=== PATIENT | female | born 1955 | race Asian ===

== ENCOUNTER → 2017-09-30 | Outpatient (CLI) | payer OTHER ==
--- NOTE | 2017-10-01 07:55 | MAMMOGRAPHY REPORT ---
BILATERAL DIGITAL SCREENING MAMMOGRAM TOMOSYNTHESIS WITH CAD: 09/30/2017 CLINICAL HISTORY: Routine screening. Patient has no complaints. TECHNIQUE: The study was acquired using full field digital technology and interpreted from soft copy. Breast tomosynthesis in addition to standard 2D mammography was performed. Current study was also ev aluated with a Computer Aided Detection (CAD) system. COMPARISON: Comparison is made to exam dated: 07/28/2006. BREAST COMPOSITION: The tissue of both breasts is heterogeneously dense, which may obscure small mass es. FINDINGS: There have been involutional changes comparing to the 2007 mammograms. There is a possible small area of architectural distortion in the middle one third of the left breast along the posterio r nipple line on the MLO view (MLO tomosynthesis slice 44/83). This is not definitely seen on the CC view but may project near 12:00 based on the tomosynthesis localizer bar. Another possible area of architectural distortion in the anterior right breast along the posterior nipple line on the cc view (right CC tomosynthesis slice 29/75), for which additional spot compression tomosynthesis views and p ossible ultrasound are recommended. No suspicious calcifications, asymmetries or definite masses are seen bilaterally. There are numerou s scattered benign rim calcifications in the breasts. IMPRESSION: ACR BI-RADS CATEGORY 0: INCOMPLETE EVALUATION: NEED ADDITIONAL IMAGING EVALUATION The possible areas of architectural distortion in the middle one third of the left breast along the p osterior nipple line, and in the anterior right breast on the CC view need additional imaging evaluat ion. The patient will be called to schedule an appointment. Some breast cancers are not detected with mammography. A negative mammographic report should not filiberto y biopsy if a clinically suggestive mass is present. Jesenia Ferreira M.D. ay/:09/30/2017 16:04:27 Bale Stacker: RT Travis(Kyree)(Charline)(BD), [facility] letter sent: Addl Imaging 0 BI-RADS Code: ACR BI-RADS Category 0: Incomplete Evaluation: Need Additional Imaging Evaluation
== END | disposition home or self-care (01) ==
LOC: C.MAMM 14:10
PROVIDERS: ATTEND Family Medicine
DX: Z12.31 Encounter for screening mammogram for malignant neoplasm of breast (principal)

== ENCOUNTER → 2017-10-08 | Outpatient (CLI) | payer OTHER ==
--- NOTE | 2017-10-08 14:55 | MAMMOGRAPHY REPORT ---
BILATERAL DIGITAL DIAGNOSTIC MAMMOGRAM TOMOSYNTHESIS WITH CAD AND TARGETED BILATERAL ULTRASOUND: 2017 CLINICAL HISTORY: Callback from screening mammogram for bilateral areas of architectural distortion. TECHNIQUE: The study was acquired using full field digital technology and interpreted from soft copy. Breast tomosynthesis in addition to standard 2D mammography was performed. Current study was also ev aluated with a Computer Aided Detection (CAD) system. Spot compression bilateral CC and MLO 2D and t omosynthesis images were obtained. COMPARISON: Comparison is made to exams dated: 07/28/2006, 07/28/2006, and 09/30/2017 mammogram - [facility]. BREAST COMPOSITION: The tissue of both breasts is heterogeneously dense, which may obscure small mass es. FINDINGS: The previously described small area of possible architectural distortion seen within the le ft superior breast on the MLO view does not clearly persist on the additional spot compression views. The other possible area of architectural distortion seen within the right anterior subareolar breas t also does not clearly persist on the additional spot compression views. Normal fibroglandular tiss ue is seen within these regions, without evidence of a suspicious mass, architectural distortion, or other suspicious findings seen. Targeted ultrasound was performed in the right subareolar breast in the region of the possible right breast architectural distortion. Sonographically normal tissue is seen in this region, without evide nce of a mass or other suspicious sonographic abnormality. Targeted ultrasound was performed in the left superior breast in the region of the questionable architectural distortion. The background pare nchymal echotexture is markedly heterogeneous with multiple areas of shadowing seen which reduces the sensitivity of the ultrasound exam. In the left 12:00 periareolar breast, there is a focal hypoecho ic lesion with posterior acoustic shadowing which measures 4 x 4 x 4 mm, which persists in both the r adial and antiradial planes. While this may represent normal fibroglandular tissue, it is indetermin ate and ultrasound-guided core needle biopsy is recommended for further evaluation. IMPRESSION: ACR BI-RADS CATEGORY 4: SUSPICIOUS, ULTRASOUND ACR BI-RADS CATEGORY 4: SUSPICIOUS 1. Questionable right breast architectural distortion does not persist on the additional views, with out corresponding suspicious sonographic abnormality evident. Findings are benign and compatible wit h normal fibroglandular tissue. 2. Questionable architectural distortion in the left superior breast effaces on additional spot comp ression views. A focal hypoechoic 4 mm region is seen within the left 12:00 periareolar breast on ul trasound, which is likely incidentally noted and is indeterminate and ultrasound-guided core needle b iopsy is recommended for further evaluation. A phone call was made to the physician's office to confirm faxed results were received. The patient has been verbally notified of the results. She tentatively scheduled the biopsy before l eaving the department. Some breast cancers are not detected with mammography. A negative mammographic report should not filiberto y biopsy if a clinically suggestive mass is present. Diana Porter M.D. ah/:10/08/2017 12:39:57 Electrician Supervisor Airplane: RT Carley(R)(M), [facility]; Diana Porter MD, [facility] letter sent: Abnormal 4/5 OVERALL STUDY BIRADS: 4 Suspicious abnormality
== END | disposition home or self-care (01) ==
LOC: C.MAMM 10:27
PROVIDERS: ATTEND Family Medicine
DX: N64.89 Other specified disorders of breast (principal); R92.8 Other abnormal and inconclusive findings on diagnostic imaging of breast

== ENCOUNTER → 2017-10-20 | Outpatient (CLI) | payer OTHER ==
--- NOTE | 2017-10-20 14:16 | Discharge Instructions ---
Discharge Instructions Procedure Procedure Date: Oct 20, 2017. Reason for visit: Left Mass. Discharge Discharge Date: Oct 20, 2017. Discharge Diagnosis: post left 12:00 breast ultrasound guided core biopsy Instructions Activity Recommendations: Additional Limitations (see below) Return to School/Work: no limitations Recommended Home Diet: No Limitations Provider Instructions: ACTIVITY RECOMMENDATIONS: * No lifting, pushing, pulling or exercising the affected side for three days. RETURN TO SCHOOL/WORK: * You may return to work/school after the procedure, but do not perform any strenuous activities for 24 to 48 hours. MEDICATIONS: * Tylenol (two 325 mg) every four to six hours if needed for mild pain (if not allergic to Tylenol). DIET: * Resume previous diet. SPECIAL CARE INSTRUCTIONS: * Keep biopsy site dry for 24 hours. May shower after 24 hours, but do not soak (bathe) incision. May remove Tegaderm (plastic patch) 24 hours after procedure * Leave the steri-strips on for one week. Allow the steri-strips to fall off by themselves. If not off after one week, you may remove them. You may place a Bandaid crosswise over the strips, if desired. * Apply ice 10 minutes on and 10 minutes off as needed. * Wear a bra at bedtime to sleep more comfortably for 2-3 days. * Your referring physician should have the results after approximately 5 to 7 business days. * Call for unusual bleeding, fever, drainage, etc or if you have any questions call [phone] during normal business hours or after hours call Dr Ferreira, . FOLLOW UP VISIT: Follow-up with Referring Physician as scheduled. Elizabeth Alvarez Recommendations: Call your doctor if: * Temperature above 101 degrees * Pain not relieved by pain medicine ordered * There is increased drainage or redness from any incision * You have any unanswered questions or concerns. Your Doctors Instructions noted above were prepared by provider Jesenia Ferreira. Patient Signature Section: Patient Instructions Signature Page Valentina Paul Patient (or Guardian) Signature/Date: I have read and understand the instructions given to me by my caregivers. Caregiver/RN/Doctor Signature/Date: The above-named patient and/or guardian has received patient instructions on this date. + Original Patient Signature Page (only) stays with chart. Please make copy for patient.
--- NOTE | 2017-10-20 14:56 | MAMMOGRAPHY REPORT ---
ULTRASOUND GUIDED BIOPSY LEFT BREAST: 10/20/2017 CLINICAL HISTORY: 62-year-old woman presents for biopsy of an incidentally identified 4 mm angular ta ller than wide hypoechoic lesion seen in the 12:00 periareolar left breast on targeted ultrasound. Trey padron was initially callback from screening for a questionable area of architectural distortion in th e superior posterior left breast on the MLO view which effaced with additional spot compression tomos ynthesis imaging. The current lesion seen on ultrasound is not thought to correspond with the effacin g distortion. COMPARISON: Comparison is made to exams dated: 10/08/2017 ultrasound, 09/30/2017 mammogram, and mammogram - [facility]. PATIENT CONSENT: The procedure, risks and benefits were discussed with the patient and informed conse nt was obtained both verbally and in writing. Specific risks to this procedure include: bleeding, in fection, puncture of adjacent structure, nontarget biopsy, sampling error, pain, metal allergy and me dication reaction. PROCEDURE DESCRIPTION: A time out was performed and the left breast was agreed as the site of biopsy. The skin was prepped and draped in the usual sterile fashion. The angular tolerated than wide hypoec hoic 4 mm mass in the 12:00 periareolar left breast was chosen as the target for biopsy. Subcutaneous and intraparenchymal 1% buffered lidocaine, with and without epinephrine, was administered as local anesthesia. A skin incision was made. Through the incision, 4 samples were taken with a 14 gauge Ach ieve biopsy device. A ribbon shaped metallic marker was placed at the biopsy site. Hemostasis was ach ieved after manual compression. The patient tolerated the procedure well and there was no immediate c omplication. The samples were sent to the pathology department in an appropriately labeled container . Postprocedure left CC and MLO tomosynthesis images were obtained. A new ribbon-shaped biopsy marker clip is identified in the 12:00 middle to anterior left breast. No significant postbiopsy hematoma. The biopsy marker clip does not align with the previously observed possible area of architectural di stortion, as suspected. Currently there is no definitive persistent area of architectural distortion in the posterior left breast on the current postprocedure view, with particular attention near the f atglandular interface. However, pending benign pathology results would recommend follow-up left terri gnostic tomosynthesis mammograms and possible ultrasound to ensure stability in 6 months. IMPRESSION: ULTRASOUND GUIDED BIOPSY Status post left breast ultrasound-guided core biopsy of an incidentally identified 4 mm angular hypo echoic mass in the 12:00 left breast identified on ultrasound. Pending benign pathology results, follow-up left diagnostic tomosynthesis mammograms and possible ult rasound are recommended to ensure stability of an increasing area of architectural distortion in the posterior breast on the MLO view. (04/21/2018) The patient will receive notification of the biopsy results from her referring physician. Jesenia Ferreira M.D. ay/:10/20/2017 14:44:23 Fire Captain: RT Sharno(Kyree)(M), [facility]
--- NOTE | 2017-10-20 14:57 | MAMMOGRAPHY REPORT ---
UNILATERAL LEFT DIGITAL DIAGNOSTIC MAMMOGRAM TOMOSYNTHESIS WITH CAD: 10/20/2017 CLINICAL HISTORY: 62-year-old woman presents for biopsy of an incidentally identified 4 mm angular ta ller than wide hypoechoic lesion seen in the 12:00 periareolar left breast on targeted ultrasound. Trey vito was initially callback from screening for a questionable area of architectural distortion in th e superior posterior left breast on the MLO view which effaced with additional spot compression tomos ynthesis imaging. The current lesion seen on ultrasound is not thought to correspond with the effacin g distortion. IMPRESSION: POST PROCEDURE IMAGING FOR MARKER PLACEMENT Please refer to the report from left breast ultrasound-guided core biopsy performed at the same time for full detail. Some breast cancers are not detected with mammography. A negative mammographic report should not filiberto y biopsy if a clinically suggestive mass is present. Jesenia Ferreira M.D. ay/:10/20/2017 14:40:50 Railway Track Plant Operator: Jesenia Ferreira, [facility] BI-RADS Code: Post Procedure Imaging For Marker Placement
== END | disposition home or self-care (01) ==
LOC: C.MAMM 13:29
PROVIDERS: ATTEND Family Medicine
DX: N63.20 Unspecified lump in the left breast, unspecified quadrant (principal)